=== PATIENT | female | born 1955 | race Caucasian/White ===

== ENCOUNTER 2016-08-12 11:26 | Emergency (ER) | payer OTHER ==
[2016-08-12 12:37] VITALS: BP 177/91
--- NOTE | 2016-08-12 12:45 | UC ---
Ear Complaint HPI - HPI Summary HPI Summary: Patient used a qtip to clean her ear and the tip is stuck in the left ear. - History of Current Complaint Chief Complaint: UCEar Stated Complaint: EAR COMPLAINT Time Seen by Provider: 08/12/16 12:36 Hx Obtained From: Patient ?: No Onset/Duration: Sudden Onset, Lasting Hours Severity Initially: Mild Severity Currently: Mild Aggravating Factors: FB - Allergies/Home Medications Allergies/Adverse Reactions: Allergies Allergy/AdvReac Type Severity Reaction Status Date / Time No Known Allergies Allergy Verified 08/12/16 12:37 PMH/Surg Hx/FS Hx/Imm Hx Previously Healthy: Yes - Surgical History Surgical History: None - Family History Known Family History: Positive: Hypertension - Social History Alcohol Use: Occasionally Substance Use Type: None Smoking Status (MU): Never Smoked Tobacco Review of Systems Constitutional: Negative Skin: Negative Eyes: Negative ENT: Ear Ache Respiratory: Negative Cardiovascular: Negative Gastrointestinal: Negative Genitourinary: Negative Motor: Negative Neurovascular: Negative Musculoskeletal: Negative Neurological: Negative Psychological: Negative All Other Systems Reviewed And Are Negative: Yes Physical Exam Triage Information Reviewed: Yes Appearance: Well-Appearing, Well-Nourished, Pain Distress Vital Signs: Initial Vital Signs Temp 99.2 F 08/12/16 12:24 Pulse 70 08/12/16 12:24 Resp 16 08/12/16 12:24 BP 177/91 08/12/16 12:24 Pulse Ox 100 08/12/16 12:24 Vital Signs Reviewed: Yes Eye Exam: Normal ENT: Positive: Hearing grossly normal, Pharynx normal, TMs normal, Other: - FB in left ear Dental Exam: Normal Neck exam: Normal Respiratory Exam: Normal Cardiovascular Exam: Normal Abdominal Exam: Normal Bowel Sounds: Positive: Present Musculoskeletal Exam: Normal Neurological Exam: Normal Psychological Exam: Normal Skin Exam: Normal Ear Complaint Course/Dx - Course Course Of Treatment: hx obtained, exam performed ,meds reviewed, removed cotton from patients left ear canal without difficulty - Differential Dx/Diagnosis Differential Diagnosis/HQI/PQRI: Cerumen Impaction, Foreign Body, Otitis Externa , Otitis Media Provider Diagnoses: foreign boy removal of left ear Discharge - Discharge Plan Condition: Stable Disposition: HOME Patient Education Materials: Ear Foreign Body (ED) Referrals: Arnel Chávez MD [Primary Care Provider] - Additional Instructions: 1. the object was removed from your ear without difficulty. no sign of infection
== END 2016-08-12 12:47 | disposition home or self-care (01) ==
LOC: UCCORT 11:26
DX: T16.2XXA Foreign body in left ear, initial encounter (principal); W45.8XXA Other foreign body or object entering through skin, initial encounter
CPT/HCPCS: 99211; G0463

== ENCOUNTER 2016-10-19 10:30 | Emergency (ER) | payer OTHER ==
[2016-10-19 11:13] VITALS: BP 148/94
[2016-10-19] MEDS ORDERED: cefTRIAXone VIAL(*) 1,000 MG VIAL IM ONE (11:32)
[2016-10-19] MEDS ORDERED: Tetan/Diph/Pertus SYR(Tdap)* 0.5 ML SYR(BOOSTRIX) use SYR IM ONE (11:33)
[2016-10-19] MEDS ORDERED: Lidocaine 1% MPF* 2 ML VIAL INJ ONE (11:42)
--- NOTE | 2016-10-19 12:10 | ED ---
Skin Complaint - HPI Summary HPI Summary: Pt presnets with c/o painful, laceration to left anterior knee. Pt reports running in [place] and tripping, falling on left knee 2 days ago. pt reports that in last 12 hours laceration and area surrounding laceration has become inceasingly painful, red, and purulent discharge. Pt does not remember when had last tetanus - History of Current Complaint Chief Complaint: UCLaceration Time Seen by Provider: 10/19/16 11:06 Stated Complaint: KNEE LAC (FELL THURSDAY) Hx Obtained From: Patient Onset/Duration: Traumatic - fell while running Skin Exposure Onset/Duration: Days Ago Timing: Constant Onset Severity: Mild Current Severity: Moderate Skin Location: Other: - left knee Aggravating Symptom(s): Touch Alleviating Symptom(s): Nothing Associated Signs & Symptoms: Drainage, Tenderness Related History: Trauma - fall from standing, while running - Allergy/Home Medications Allergies/Adverse Reactions: Allergies Allergy/AdvReac Type Severity Reaction Status Date / Time seasonal Allergy Congestion Uncoded 10/19/16 11:14 Home Medications: Home Medications Hydrochlorothiazide TAB* [Hydrodiuril TAB*] 25 mg PO DAILY 10/19/16 [History Confirmed 10/19/16] PMH/Surg Hx/FS Hx/Imm Hx Previously Healthy: Yes Endocrine/Hematology History: Reports: Hx Thyroid Disease - HYPO Denies: Hx Diabetes Cardiovascular History: Reports: Hx Hypertension Denies: Hx Pacemaker/ICD History: Denies: Hx Renal Disease Sensory History: Denies: Hx Hearing Aid Psychiatric History: Denies: Hx Panic Disorder - Cancer History Hx Chemotherapy: No Hx Radiation Therapy: No - Immunization History Immunizations Up to Date: No Infectious Disease History: No Infectious Disease History: Denies: Traveled Outside the [place] in Last 30 Days - Family History Known Family History: Positive: Hypertension - Social History Occupation: Retired Lives: With Family Alcohol Use: Occasionally Hx Substance Use: No Substance Use Type: Reports: None Smoking Status (MU): Never Smoked Tobacco Do You Chew or Dip Tobacco: No Have You Smoked in the Last Year: No Review of Systems Constitutional: Negative Eyes: Negative ENT: Negative Cardiovascular: Negative Respiratory: Negative Gastrointestinal: Negative Genitourinary: Negative Positive: Myalgia, Decreased ROM - left knee, Edema - left knee at laceartion site Skin: Other - laceration, left knee, purulent dsicahrge from site, erythema surround wound Neurological: Negative Psychological: Normal All Other Systems Reviewed And Are Negative: Yes Physical Exam Triage Information Reviewed: Yes Vital Signs On Initial Exam: Initial Vitals Temp Pulse Resp BP 99.8 F 86 18 148/94 10/19/16 11:04 10/19/16 11:04 10/19/16 11:04 10/19/16 11:04 Vital Signs Reviewed: Yes Appearance: Positive: Well-Appearing Skin: Positive: Warm, Skin Color Reflects Adequate Perfusion, Tender, Erythema @ - surround laceration, ~ 8 cm diameter, Other - to left anrterior knee, 3 cm length 6 mm in width, with pururlent discharge. Head/Face: Positive: Normal Head/Face Inspection Eyes: Positive: Normal ENT: Positive: Normal ENT inspection Neck: Positive: Supple, Nontender Respiratory/Lung Sounds: Positive: Clear to Auscultation Cardiovascular: Positive: Normal Abdomen Description: Positive: Nontender Musculoskeletal: Positive: Limited @ - left knee secondary to pain, Pain @ - left anterior knee icision site Neurological: Positive: Normal Psychiatric: Positive: Normal AVPU Assessment: Alert Diagnostics - Vital Signs Vital Signs Temp Pulse Resp BP 10/19/16 11:04 99.8 F 86 18 148/94 - Laboratory Lab Statement: Any lab studies that have been ordered have been reviewed, and results considered in the medical decision making process. Course/Dx - Differential Diagnoses - Skin Complaint Differential Diagnoses: MRSA - Diagnoses Provider Diagnoses: Infected wound Discharge - Discharge Plan Condition: Stable Disposition: HOME Prescriptions: Cephalexin CAP* [Keflex 500 CAP*] 500 mg PO Q12H #14 cap Sulfamethox/Trimethoprim DS* [Bactrim DS 800/160 TAB*] 1 tab PO Q12H #14 tab Wound Dressings [Medihoney Wound/Burn] 1 pst EX DAILY #7 pst Patient Education Materials: Wound Infection (ED) Referrals: Alfred Luu MD [Primary Care Provider] - If Needed Additional Instructions: Please follow up with your PCP or return to clinic as needed. Please continue to monitor for worsening symptoms of infection including but not limited to increased redness, tenderness, purulent discharge, mild swelling fever and chills.
== END 2016-10-19 12:55 | disposition home or self-care (01) ==
LOC: UCCORT 10:30
DX: S81.012A Laceration without foreign body, left knee, initial encounter (principal); L08.9 Local infection of the skin and subcutaneous tissue, unspecified; W18.30XA Fall on same level, unspecified, initial encounter; Y93.02 Activity, running; Y92.821 Forest as the place of occurrence of the external cause; Z23 Encounter for immunization; E03.9 Hypothyroidism, unspecified
CPT/HCPCS: 87070; 87077; 87186; 87205; 87640; 87641; 90471; 90715; 96372; 99213; G0463; J0696